=== PATIENT | female | born 1965 | race African-American/Black ===

== ENCOUNTER 2017-10-06 12:45 | Day surgery (SDC) | payer BC ==
[~2017-10-06] VITALS: Ht 157.5 cm; Wt 86.3 kg
[2017-10-06 13:06] VITALS: BP 154/85; PULSE 61; TEMP 97.5
[2017-10-06] MEDS ORDERED: PRENATAL MVI PO (13:12)
[2017-10-06] MEDS ORDERED: VITAMIN C500 MG PO (13:13)
[2017-10-06 14:30] VITALS: BP 138/79; PULSE 44; TEMP 97.6
[2017-10-06 14:45] VITALS: BP 104/63; PULSE 49
[2017-10-06 15:00] VITALS: BP 107/60; PULSE 54
[2017-10-06 15:15] VITALS: BP 110/61; PULSE 50
[2017-10-06 16:10] VITALS: BP 132/71; PULSE 49
== END 2017-10-06 15:31 | disposition home or self-care (01) ==
LOC: SDCO 12:45
DX: Z12.11 Encounter for screening for malignant neoplasm of colon (principal)
CPT/HCPCS: OP; J2250; J3010; J7030

== ENCOUNTER → 2017-10-20 | Outpatient (CLI) | payer BC ==
[~2017-10-20] MED LIST: PRENATAL MVI PO; VITAMIN C500 MG PO
== END ==
LOC: MC.RAD 07:19
DX: Z12.31 Encounter for screening mammogram for malignant neoplasm of breast (principal)